=== PATIENT | male | born 1945 | race Caucasian/White ===

== ENCOUNTER 2017-01-20 08:28 | Emergency (ER) | payer SELFPAY ==
[2017-01-20] MEDS ORDERED: Sodium Chloride 0.9% 1,000 ML IV ONE (08:56)
--- NOTE | 2017-01-20 09:07 | ED Physician Chart ---
Chief Complaint/HPI - Patient Information Date Seen:: 01/20/17 Time Seen:: 09:02 Chief Complaint:: abd p History of Present Illness:: this male says he had onset this am of let low abd pain which is moderate intensity. he had a bm at 5am no fever. no n/v/d. unclear if any +/- factors but seemingly none. 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 his record indicates a hx of DM also but I am unclear how this was attached. Pt is on NO meds and says his last Dr visit was 2 yrs ago. I have spent sig time attempting to educate this pt in past and again today about need to get a PMD and stay on his meds to improve his longevity. he denies past abd pains like this. Allergies:: Allergies Allergy/AdvReac Type Severity Reaction Status Date / Time No Known Allergies Allergy Verified 01/20/17 08:39 Vitals:: Vital Signs - 8 hr 01/20/17 08:40 Temp 97 F HR 86 RR 16 BP 156/117 O2 Sat % 98 Historian:: Patient Review of Systems - Review of Systems General/Constitutional: No fever, No chills, No weight loss, No weakness, No diaphoresis, No edema, No loss of appetite Skin: No skin lesions, No rash, No bruising Head: No headache, No light-headedness Eyes: No loss of vision, No pain, No diplopia ENT: No earache, No nasal drainage, No sore throat, No tinnitus Neck: No neck pain, No swelling, No thyromegaly, No stiffness, No mass noted Cardio Vascular: No chest pain, No palpitations, No PND, No orthopnea, No edema Pulmonary: No SOB, No cough, No sputum, No wheezing GI: No nausea, No vomiting, No diarrhea, Pain, No melena, No hematochezia, No constipation, No hematemesis G/U: No dysuria, No frequency, No hematuria Musculoskeletal: No bone or joint pain, No back pain, No muscle pain Endocrine: No polyuria, No polydipsia Psychiatric: No prior psych history, No depression, No anxiety, No suicidal ideation Hematopoietic: No bruising, No lymphadenopathy Allergic/Immuno: No urticaria, No angioedema Neurological: No syncope, No focal symptoms, No weakness, No paresthesia, No headache, No seizure, No dizziness, No confusion, No vertigo Past Medical History - Past Medical History Past Medical History: Other (svt/a-fib hx (noncompliant w rate ctrl meds in past ), high chol hx(noncompliant w meds)) Social History: Lives Alone (says lives alone locally) Medication: Reviewed Family Medical History - Family Member Mother History Unknown: Yes Living Status: Physical Exam - Physical Examination General/Constitutional: Awake, Well-developed, well-nourished, Alert, No distress, GCS 15, Non-toxic appearing, Ambulatory Other Gen/Cons comments:: smiling and alert. doesnt seem in pain. moves around on bed wo obvious discomfort. wn/wh. alert. nontoxic. 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 Head: Atraumatic Eyes: Lids, conjuctiva normal, PERRL, EOMI Skin: Nl inspection, No rash, No skin lesions, No ecchymosis, Well hydrated, No lymphadenopathy ENMT: External ears, nose nl, Nasal exam nl, Lips, teeth, gums nl Neck: Nontender, Full ROM w/o pain, No JVD, No nuchal rigidity, No bruit, No mass, No stridor Respiratory: Nl effort/Exclusion, Clear to Auscultation, No Wheeze/Rhonchi/Rales Cardio Vascular: RRR, No murmur, gallop, rubs, NL S1 S2 GI: No tenderness/rebounding/guarding, No organomegaly, No hernia, Normal BS's, Nondistended, No mass/bruits, No McBurney tenderness Other GI comments:: soft. pos nabs. no rebound. mild tndr to LLQ. no masses. : No CVA tenderness Extremities: No tenderness or effusion, Full ROM, normal strength in all extremities, No edema, Normal digits & nails Neuro/Psych: Alert/oriented, DTR's symmetric, Normal sensory exam, Normal motor strength, Judgement/insight normal, Mood normal, Normal gait, No focal deficits Misc: normal gait, Normal back, No paraspinal tenderness Labs/Radiology/EKG Results - Lab Results Results: Laboratory Tests 01/20/17 01/20/17 01/20/17 09:10 09:10 09:15 WBC 8.0 D RBC 5.09 Hgb 15.5 Hct 46.4 MCV 91.2 MCH 30.4 MCHC Differential 33.3 RDW 12.4 Plt Count 233 MPV 8.1 Neutrophils % 76.8 Lymphocytes % 15.6 L Monocytes % 6.5 Eosinophils % 0.8 Basophils % 0.3 Sodium 134 L Potassium 3.9 Chloride 102 Carbon Dioxide 25.4 Anion Gap 10.5 BUN 22 Creatinine 1.5 H Est GFR ( Amer) 59.5 Est GFR (Non-Af Amer) 49.2 BUN/Creatinine Ratio 14.7 Glucose 175 H Calcium 9.2 Total Bilirubin 0.6 AST 16 ALT 17 Alkaline Phosphatase 85 Total Protein 6.9 Albumin 3.9 L Globulin 3.0 Albumin/Globulin Ratio 1.3 Lipase 34 Urine Source CLEAN C Urine Color YELLOW Urine Clarity SL. CLOUDY Urine pH 5.0 Ur Specific [place] 1.025 Urine Protein TRACE Urine Glucose (UA) 100 H Urine Ketones NEGATIVE Urine Blood NEGATIVE Urine Nitrate NEGATIVE Urine Bilirubin NEGATIVE Urine Urobilinogen 0.2 Ur Leukocyte Esterase NEGATIVE Urine RBC NONE SEEN Urine WBC NONE SEEN Ur Epithelial Cells RARE Urine Bacteria NONE SEEN - EKG Interpretations EKG Time:: 09:15 Rate & Rhythm: a fib w vent rate 107 [place]: 101 Intervals: [id number] ED Septic Shock - . Is Septic Shock (SBP<90, OR Lactate>4 mmol\L) present?: No - <6hrs of presentation: Vital Signs: Vital Signs - 8 hr 01/20/17 08:40 Temp 97 F HR 86 RR 16 BP 156/117 O2 Sat % 98 Reassessment (Disposition) - Reassessment Reassessment:: asked SS to see pt and help him find a PMD referral as pt does not seem to have a PMD. pt did talk to SS and says they were helpful. reviewd results w pt. explained dx. discussed again that he needs a PMD and needs to be on regular daily med for his heart not just for a month but his whole life and he will need a PMD to continue this. pt nods understands. qs answered. explained about [place] adx and need to keep stone for PMD. 11;20a pt says his pain is totally gone now (makes dx of diverticulosis seem highly unlikely by sx and timing)...will cover w abx as a precaution but frankly doubt this dx. rx norco 5s no 15, Levaquin 500/d x 1wk, atenolol 25/d x 1 mo, baby asa 1 poqd x 1 mo. Reassessment Condition:: Improved - Diagnosis Diagnosis:: 1 left ureterolith 2mm at left upj w assoc renal colic 2 untreated a fib / svt hx (noncompliant w meds) 3 htn (untreated) 4 possible early diverticulitis (though clinically seems unlikely) 5 noncompliant pt - Aftercare/Follow up Instructions Aftercare/Follow-Up Instructions:: Counseled pt regarding lab results/diagnosis & need follow up - Patient Disposition Discharge/Transfer:: Home Condition at Disposition:: Improved
[2017-01-20 09:14] LABS: % BASOPHILS 0.3 % (0.0-2.0); % EOSINOPHILS 0.8 % (0.0-5.0); % LYMPHOCYTES 15.6 % (20.0-50.0); % MONOCYTES 6.5 % (2.0-10.0); % NEUTROPHILS 76.8 % (40.0-80.0); HEMATOCRIT 46.4 % (39.0-49.0); HEMOGLOBIN 15.5 gm/dL (12.6-17.4); MEAN CELL VOLUME 91.2 fl (80-99); MEAN CORPUSCULAR HEMOGLOBIN 30.4 pg (27.0-31.0); MEAN CORPUSCULAR HGB CONC 33.3 pg (28.0-36.0); MEAN PLATELET VOLUME 8.1 fl; NEUTROPHILE ABSOLUTE 6.2 Th/cmm (1.8-8.0); PLATELET COUNT 233 Th/cmm (150-400); RED BLOOD COUNT 5.09 Mil/cmm (3.80-5.80); RED CELL DISTRIBUTION WIDTH 12.4 % (11.5-20.0)
[2017-01-20 09:29] LABS: URINE BILIRUBIN NEGATIVE (NEGATIVE); URINE BLOOD NEGATIVE (NEGATIVE); URINE GLUCOSE (UA) 100 mg/dL (NEGATIVE); URINE KETONE NEGATIVE (NEGATIVE); URINE PROTEIN TRACE mg/dL (NEGATIVE); URINE UROBILINOGEN 0.2 E.U./dL (0.2 - 1.0)
[2017-01-20 09:30] LABS: URINE COLOR YELLOW
[2017-01-20 09:35] LABS: URINE BACTERIA NONE SEEN /hpf (NONE SEEN); URINE EPITHELIAL CELLS RARE /lpf (FEW); URINE RBC NONE SEEN /hpf (0-5); URINE WBC NONE SEEN /hpf (0-5)
[2017-01-20 09:38] LABS: ALB/GLOB RATIO 1.3 (1.0-1.8); ANION GAP 10.5 (7.0-16.0); BILIRUBIN,TOTAL 0.6 mg/dL (0.3-1.0); BUN/CREATININE RATIO 14.7; CALCIUM SERUM 9.2 mg/dL (8.6-10.3); CARBON DIOXIDE 25.4 mEq/L (21.0-31.0); CREATININE - SERUM 1.5 mg/dL (0.7-1.3); POTASSIUM SERUM 3.9 mEq/L (3.5-5.1)
--- NOTE | 2017-01-20 10:48 | Diagnostic Imaging Report ---
Exam: CT examination the abdomen pelvis. HISTORY: Onset of the left-sided pain. Total DLP equals 461 CTDI equals 9.4. Findings: Multiple contiguous thin section of the abdomen pelvis were obtained from lower thorax to the pubic symphysis without the administration of oral or intravenous contrast material. No prior studies available for comparison. The study demonstrates normal aeration of lung parenchyma the bases. The liver parenchyma demonstrates small cyst in the superior portion right lobe of liver medially. Another cyst is noted in the left lobe of liver in the uncinate process. Clinical correlation CT examination with contrast ultrasound summation abdomen particularly liver is recommended. The appendix is normal. The adrenal glands intact. The kidneys demonstrate no evidence of obstructive uropathy. Nonobstructing 4 mm calcification is noted in the inferior calyx of left kidney. There is evidence for nonobstructing 2 mm calculus in the left ureterovesical junction. Clinical correlation recommended. There is evidence of diverticulosis and might be mild diverticulitis of sigmoid colon. Bony structures demonstrate no evidence for lytic or blastic osseous. IMPRESSION: 1. Diverticulosis sigmoid colon/mild diverticulitis cannot be excluded. Nonobstructing 4 mm calculus in the inferior calyx the left kidney Nonobstructing 2 mm calculus in the left ureterovesical junction.
== END 2017-01-20 12:48 | disposition home or self-care (01) ==
LOC: ER 08:28
DX: N20.1 Calculus of ureter (principal); N23 Unspecified renal colic; I10 Essential (primary) hypertension
CPT/HCPCS: 36415-UA; 80053-TC; 81001-TC; 83690-TC; 85025-TC; 93005; J7030